=== PATIENT | male | born 1955 | race Caucasian/White ===

== ENCOUNTER 2017-02-20 08:57 | Inpatient (IN) | payer SELFPAY ==
[~2017-02-20] VITALS: Ht 175.3 cm; Wt 91.1 kg
[2017-02-20 09:41] LABS: HEMATOCRIT 47.4 % (38.0-50.0); MCH 29.2 PG (29.0-34.0); MCHC 34.2 G/DL (30.0-36.0); MCV 85.6 FL (86-99); PLATELET COUNT 168 K/uL (156-360); RBC DIS.WIDTH-CV 12.3 % (11.8-14.6); RBC DIS.WIDTH-SD 38.7 % (39-53); RED BLOOD COUNT 5.54 M/uL (4.00-5.50); WHITE BLOOD COUNT 10.6 K/uL (4.1-10.2)
[2017-02-20 09:52] LABS: CHLORIDE 108 mEq/L (99-109); POTASSIUM 4.2 mEq/L (3.7-5.4)
[2017-02-20 09:53] LABS: SODIUM 140 mEq/L (136-147)
[2017-02-20 09:54] LABS: GLUCOSE 116 mg/dL (70-99)
[2017-02-20 09:56] LABS: ANION GAP 9 MEQ/L (2-14)
[2017-02-20 09:58] LABS: GFR ESTIMATE (CALCULATED) > 59 mL/min/
[2017-02-20 09:59] LABS: UREA NITROGEN (BUN) 16 mg/dL (9-23)
[2017-02-20 10:03] LABS: TROP-I INTERPRETATION POSITIVE; TROPONIN-I 1.33 ng/mL (0.0-0.30)
[2017-02-20 10:26] LABS: INTER. NORMALIZED RATIO 1.1; PROTHROMBIN TIME 11.9 SEC (10.2-12.9)
[2017-02-20 10:28] LABS: PTT 28.5 SEC (25-37)
[2017-02-20] MEDS ORDERED: TERBINAFINE HC250 MG PO (10:42)
[2017-02-20] MEDS ORDERED: ZETIA10 MG PO (10:42)
[2017-02-20] MEDS ORDERED: PROAIR HFA8.5 GM IH (10:42)
[2017-02-20 11:01] LABS: MAGNESIUM 1.8 mg/dL (1.3-2.7)
[2017-02-20] MEDS ORDERED: ADVIL200 MG PO (11:13)
[2017-02-20 11:21] LABS: SAMPLE HEMOLYSIS CHECK 0; SAMPLE ICTERIC CHECK 0; SAMPLE LIPEMIA CHECK 0
[2017-02-20 11:27] LABS: HDL CHOLESTEROL 36 MG/DL (Desirable>=40); LDL CHOLESTEROL 136 mg/dL (Desirable<100); NON-HDL CHOLESTEROL 185 mg/dL (Desirable<160); TOTAL CHOLESTEROL 221 mg/dL (Desirable<200); TRIGLYCERIDES 246 MG/DL (Normal: <150)
[2017-02-20 12:30] LABS: Estimated Average Glucose 123 mg/dL (70-123); HEMOGLOBIN A1c (GLYCOHEMOGLOB) 5.9 % HGB (Below 5.7)
[2017-02-20 20:04] VITALS: BP 131/68
[2017-02-20 21:30] LABS: TROP-I INTERPRETATION POSITIVE
[2017-02-20 21:31] LABS: TROPONIN-I 4.57 ng/mL (0.0-0.30)
[2017-02-21 00:15] VITALS: BP 100/56
[2017-02-21 01:51] LABS: TROP-I INTERPRETATION POSITIVE; TROPONIN-I 3.99 ng/mL (0.0-0.30)
[2017-02-21 05:28] VITALS: BP 109/62
[2017-02-21 07:37] VITALS: BP 118/63
[2017-02-21 09:23] LABS: HEMATOCRIT 47.6 % (38.0-50.0); MCH 28.8 PG (29.0-34.0); MCHC 33.4 G/DL (30.0-36.0); MCV 86.1 FL (86-99); MEAN PLAT.VOLUME 10.3 uM^3 (9.0-12.4); PLATELET COUNT 175 K/uL (156-360); RBC DIS.WIDTH-CV 12.7 % (11.8-14.6); RBC DIS.WIDTH-SD 40.1 % (39-53); RED BLOOD COUNT 5.53 M/uL (4.00-5.50); WHITE BLOOD COUNT 9.6 K/uL (4.1-10.2)
[2017-02-21 09:48] LABS: AMPHETAMINES QUANT VALUE 0 NG/ML; BARBITUATES QUANT VALUE 0 NG/ML; BENZODIAZEPINES, URINE SCREEN POSITIVE (200 ng/mL); MARIJUANA QUANT VALUE 0 NG/ML; OPIATES QUANTITATIVE VALUE 0 NG/ML; PHENCYCLIDINE QUANT VALUE 0 NG/ML
[2017-02-21 09:48] LABS: ANION GAP 7 MEQ/L (2-14); CHLORIDE 109 MEQ/L (99-109); GFR ESTIMATE (CALCULATED) > 59 mL/min/; GLUCOSE 96 mg/dL (70-99); POTASSIUM 4.1 MEQ/L (3.7-5.4); SAMPLE HEMOLYSIS CHECK 0; SAMPLE ICTERIC CHECK 0; SAMPLE LIPEMIA CHECK 0; SODIUM 141 MEQ/L (136-147); UREA NITROGEN (BUN) 12 mg/dL (9-23)
[2017-02-21 12:00] VITALS: BP 124/86
[2017-02-21 16:23] VITALS: BP 111/77
[2017-02-21 19:55] VITALS: BP 120/78
[2017-02-22 00:04] VITALS: BP 126/74
[2017-02-22 04:13] VITALS: BP 101/57
[2017-02-22 06:04] LABS: HEMATOCRIT 49.2 % (38.0-50.0); MCH 28.6 PG (29.0-34.0); MCHC 33.1 G/DL (30.0-36.0); MCV 86.5 FL (86-99); MEAN PLAT.VOLUME 10.5 uM^3 (9.0-12.4); PLATELET COUNT 159 K/uL (156-360); RBC DIS.WIDTH-CV 12.5 % (11.8-14.6); RBC DIS.WIDTH-SD 39.6 % (39-53); RED BLOOD COUNT 5.69 M/uL (4.00-5.50); WHITE BLOOD COUNT 10.6 K/uL (4.1-10.2)
[2017-02-22 07:36] VITALS: BP 114/72
[2017-02-22] MEDS ORDERED: ASPIR-LOW81 MG PO (11:37)
[2017-02-22] MEDS ORDERED: ATORVASTATIN CA40 MG PO (11:38)
[2017-02-22] MEDS ORDERED: NICOTINE PATCH1 EAC2 TD (11:38)
[2017-02-22] MEDS ORDERED: BRILINTA90 MG PO (11:38)
[2017-02-22] MEDS ORDERED: LOPRESSOR25 MG PO (11:38)
[2017-02-22] MEDS ORDERED: LOSARTAN POTASS25 MG PO (11:38)
== END 2017-02-22 12:47 | disposition home or self-care (01) | DRG 247 ==
LOC: EME 08:57 → 4EAST 10:28 → EDOF 10:28 → 4EAST 10:28 → EDOF 18:53 → 4EAST 20:13
PROVIDERS: Emergency Medicine; Internal Medicine; Physician Assistant
DX: I21.4 Non-ST elevation (NSTEMI) myocardial infarction (principal); E78.5 Hyperlipidemia, unspecified; I10 Essential (primary) hypertension; F17.200 Nicotine dependence, unspecified, uncomplicated; R91.8 Other nonspecific abnormal finding of lung field; I25.10 Atherosclerotic heart disease of native coronary artery without angina pectoris; I71.4 Abdominal aortic aneurysm, without rupture; I73.9 Peripheral vascular disease, unspecified; I25.5 Ischemic cardiomyopathy; K21.9 Gastro-esophageal reflux disease without esophagitis; Z79.82 Long term (current) use of aspirin; Z86.79 Personal history of other diseases of the circulatory system; Z83.3 Family history of diabetes mellitus
CPT/HCPCS: 71020; 71275; 74175; 80048; 80061; 80306 90; 83036; 83735; 84484; 85027; 85347; 85610; 85730; 93005; 93306; 99281; 99285; C1725; C1769; C1874; C1887; J1644; J2250; J3010; J3246; J7030